=== PATIENT | female | born 1980 | race Caucasian/White ===

== ENCOUNTER → 2019-02-17 | Outpatient (CLI) | payer BC ==
[~2019-02-17] MED LIST: CEPH-13 PO; HYDR-385 PO
--- NOTE | 2019-02-17 09:41 | RADIOLOGY IMAGING REPORT ---
FACILITY: [facility] PATIENT NAME: STEPHANIE LAWTON : [id number] MR: [id number] V: [id number] EXAM DATE: [id number] ORDERING PHYSICIAN: CHERI GUZMAN TECHNOLOGIST: Mckenzie Hunt PROCEDURE:BILATERAL DIAGNOSTIC DIGITAL MAMMOGRAM WITH CAD ASSISTED INTERPRETATION & 3D TOMOSYNTHESIS REASON FOR STUDY: Palpable lump 11-12 o'clock retroareolar Left breast. While this lump has decreased in size after a round of antibiotics. FAMILY HISTORY OF BREAST CANCER: None BREAST PROCEDURES/TREATMENTS: None COMPARISON STUDIES: None MAMMOGRAM VIEWS OBTAINED: Bilateral 2D & 3D full field CC & MLO projections in addition to 2D & 3D spot compression view in the Left MLO projection. BREAST DENSITY: The breasts are heterogeneously dense which can obscure small masses. MAMMOGRAM FINDINGS: There is a focal asymmetry in the upper outer quadrant of the Left breast in the middle depth. ULTRASOUND LEFT BREAST AREA SCANNED: 9-3 o'clock position Left breast ULTRASOUND FINDINGS: Today's Left breast Ultrasound demonstrated a 3mm cyst in the approximate 2 o'clock position of the Left breast & approximate 5mm cyst in the 11 o'clock position of the Left breast 7cm from the nipple. No abnormality was identified in the 11-12 o'clock position periareolar portion of the Left breast to account for patient's palpable findings. DIAGNOSTIC CATEGORY 3--PROBABLY BENIGN FINDING. RECOMMENDATIONS: SIX MONTH FOLLOW-UP DIAGNOSTIC MAMMOGRAM: LEFT BREAST. ASSESSMENT: BIRADS 3: Probably benign finding. A 6 month follow up Left mammogram is recommended to document stability of the parenchymal pattern & clinical follow up is recommended for patient's palpable findings. Dictated by: Lupis Mercado M.D. on 02/16/2019 at 16:10 Transcribed by: DENISE on 02/17/2019 at 8:35 Approved by: Lupis Mercado M.D. on 02/17/2019 at 9:40 [facility]
== END ==
LOC: US 02-16 07:35
PROVIDERS: ATTEND Nurse Practitioner Family
DX: N60.02 Solitary cyst of left breast (principal)
CPT/HCPCS: 77062; 77066